=== PATIENT | female | born 1995 | race Caucasian/White ===

== ENCOUNTER 2017-08-22 00:01 | Emergency (ER) | payer OTHER ==
[~2017-08-22] VITALS: Ht 157.5 cm; Wt 50.1 kg
[2017-08-22 01:28] VITALS: BP 118/83
== END 2017-08-22 01:29 | disposition home or self-care (01) ==
LOC: EME 00:01
DX: S09.90XA Unspecified injury of head, initial encounter (principal); W18.30XA Fall on same level, unspecified, initial encounter; Y93.51 Activity, roller skating (inline) and skateboarding; H92.02 Otalgia, left ear; R11.0 Nausea
CPT/HCPCS: 99281; 99284; J1885